=== PATIENT | female | born 1975 | race Native Hawaiian/Other Pacific Islander ===

== ENCOUNTER 2022-06-22 15:52 | Emergency (ER) | payer OTHER, BC, SELFPAY ==
[2022-06-22 16:02] VITALS: BP 130/66; PULSE 76; RESP 18; TEMP 36.4; O2SAT 96; BMI 31.8
--- NOTE | 2022-06-22 16:37 | ED_ITS ---
HPI - General Adult General Chief complaint: Extremity Pain/Injury, Lower Stated complaint: Fall yesterday, Right leg injury Time Seen by Provider: 06/22/22 15:58 History of Present Illness HPI narrative: This 47-year-old female comes in for evaluation of an injury that occurred yesterday while at work. She states that she fell and has pain now in her right buttock extending down the posterior and lateral aspect of her right upper leg to her knee. She states that she is able to ambulate but has discomfort when doing so. She did not hit her head or have any other injury. She is otherwise in good health. Related Data Previous Rx's Medication Instructions Recorded ketorolac 10 mg tablet 10 mg PO Q8H 5 days #15 tabs 06/22/22 methylprednisolone 4 mg tablets in See Rx Instructions PO .COMPLEX 06/22/22 a dose pack (Medrol (Placido)) #21 ea Review of Systems Status of ROS: Reports: 10 or more systems reviewed and unremarkable except as noted in History and below Narrative: Constitutional: No fevers, no weight gain or loss. Eyes: No discharge. No vision changes. HENT: No congestion, no sore throat, no ear pain. Cardiovascular: No chest pain, no palpitations. Respiratory: No shortness of breath, no wheezes, no cough. Gastrointestinal: No abdominal pain, no vomiting, no diarrhea. Genitourinary: No dysuria, no hematuria. Musculoskeletal: Normal range of motion. She reports pain in the right buttock and posterior and lateral aspect of her right upper leg. Skin: No rashes, no pruritis. Neurological: No dizziness, weakness, sensory change, speech change. Endo/Heme/Allergies: No bruising or bleeding. No polydipsia. Pysch: no suicidality, no anxiety, no insomnia. All other systems reviewed and are negative. PFSH PFSH Social History Smoking Status: Never smoker Do you use any of these nicotine containing products: None Second hand tobacco smoke exposure: No How often do you have a drink containing alcohol: monthly or less How many standard drinks containing alcohol do you have on a typical day: 1 or 2 How often do you have six or more drinks on one occasion: Never AUDIT-C Alcohol total score: 1 Non-prescribed substance use: denies use service: No Exam Narrative: Exam Narrative: Constitutional: Well-developed, well-nourished, no acute distress. HEENT: Normocephalic, atraumatic. Neck: Normal range of motion. Nontender. Supple. Heart: Regular. No murmurs. Normal rate. Intact distal pulses. Lungs: Clear to auscultation. No chest discomfort. No wheezes, rhonchi, or rales. Abdomen: Normal bowel sounds. Nontender. No rebound tenderness. Genitalia: Deferred. Back: No midline tenderness. Normal range of motion. Extremities: Normal range of motion. No injury. Straight leg raise is negative bilaterally. She does have some tightness and pain in the distribution of a sciatica syndrome. Skin: Intact. No rash. Warm. No erythema or pallor. Neurologic: No altered sensation. No weakness. Alert and oriented. Psychiatric: No suicidality. No anxiety or depression. No insomnia. Nursing notes and vitals signs are reviewed. Const: Vital Signs, click to edit/add: Vital Signs - 24 hr 06/22/22 16:02 Temperature 97.5 F L Pulse Rate [Femora l] 76 Respiratory Rate 18 Blood Pressure [Ri ght Forearm] 130/66 Pulse Oximetry 96 Oxygen Delivery Me thod Room Air Course Vital Signs Vital signs: Initial Vital Signs Temperature 97.5 F L 06/22/22 16:02 Temperature Source Temporal Artery Scan 06/22/22 16:02 Pulse Rate 76 06/22/22 16:02 Pulse Rhythm Regular 06/22/22 16:02 Respiratory Rate 18 06/22/22 16:02 Blood Pressure 130/66 06/22/22 16:02 Blood Pressure Mean 87 06/22/22 16:02 Blood Pressure Position Supine 06/22/22 16:02 Pulse Oximetry 96 06/22/22 16:02 Oxygen Delivery Method Room Air 06/22/22 16:02 Vital Signs Temperature 97.5 F L 06/22/22 16:02 Pulse Rate 76 06/22/22 16:02 Respiratory Rate 18 06/22/22 16:02 Blood Pressure 130/66 06/22/22 16:02 Pulse Oximetry 96 06/22/22 16:02 Oxygen Delivery Method Room Air 06/22/22 16:02 Temperature 97.5 F L 06/22/22 16:02 Pulse Rate 76 06/22/22 16:02 Respiratory Rate 18 06/22/22 16:02 Blood Pressure 130/66 06/22/22 16:02 Pulse Oximetry 96 06/22/22 16:02 Oxygen Delivery Method Room Air 06/22/22 16:02 Medical Decision Making MDM Narrative Medical decision making narrative: This patient reports an injury that occurred yesterday but is able to ambulate. I did discuss the role of imaging and in a process of shared decision making this was declined. The patient does seem to have some pain radiating down in the distribution of sciatica. She is okay to be discharged home. I did prescribe Toradol and Medrol Dosepak. A return to work note is also provided. Discharge Plan Discharge Clinical Impression: Sciatica Patient Disposition: Home, Self-Care Condition: Unchanged Additional Instructions: Take medication as needed and indicated. Increase activity as tolerated. Follow up with MD or return if worsening. Prescriptions: New ketorolac 10 mg tablet 10 mg PO Q8H 5 Days Qty: 15 0RF methylprednisolone [Medrol (Placido)] 4 mg tablets,dose pack See Rx Instructions .ROUTE .COMPLEX Qty: 21 0RF Rx Instructions: orally per package directions Stand Alone Forms: [employer] Info Instructions
--- NOTE | 2022-06-25 15:57 | ED.NURSE ---
chart accessed due to them arriving here needing further information to allow her to work. it stated that to increase activity as tolerated. will make appointment to have this clarified and to be more specific.
== END 2022-06-22 17:04 | disposition home or self-care (01) ==
LOC: ED 17:02
PROVIDERS: Emergency Provider Emergency Medicine Emergency Medical Services
DX: M54.31 Sciatica, right side (principal)
CPT/HCPCS: 99284